=== PATIENT | male | born 1990 | race Two or more races ===

== ENCOUNTER 2017-12-19 20:41 | Emergency (ER) | payer SELFPAY ==
[~2017-12-19] VITALS: Ht 180.3 cm; Wt 113.4 kg
[2017-12-19 21:07] VITALS: BP 121/68
[2017-12-19] MEDS ORDERED: diphenhydrAMINE HCL 25 MG CAPSULE ONE (22:19)
[2017-12-19] MEDS ORDERED: predniSONE 20 MG TABLET ONE (22:20)
[2017-12-19] MEDS ORDERED: diphenhydrAMINE HCL ELIX 25 MG/10 ML UDC PO ONE (22:30)
[2017-12-19] MEDS ORDERED: predniSONE 20 MG TABLET PO ONE (22:30)
== END 2017-12-19 22:23 | disposition home or self-care (01) ==
LOC: ER 20:43
DX: T78.40XA Allergy, unspecified, initial encounter (principal); F10.10 Alcohol abuse, uncomplicated; J45.909 Unspecified asthma, uncomplicated
CPT/HCPCS: 99283; A4606; J7512; Q0163; Z7610

== ENCOUNTER 2019-07-22 14:05 | Emergency (ER) | payer SELFPAY ==
[~2019-07-22] VITALS: Ht 180.3 cm; Wt 104.3 kg
--- NOTE | 2019-07-22 14:16 | NUR ---
"C/O R SIDED WEAKNESS x 1 DAY AROUND 3 PM" PT AAOX4, -SOB, NAD NOTED, VSS, PIV STARTED, BLOOD COLLECTED, PENDING MD DIEGO
[2019-07-22 14:49] LABS: BASOPHILS % (AUTO) 0.3 % (0.0-2.0); EOSINOPHILS % (AUTO) 0.6 % (0.0-6.0); HEMATOCRIT 41 % (39-51); HEMOGLOBIN 13.5 g/dL (13.5-17.5); LYMPHOCYTES # (AUTO) 1.9 /CMM (0.8-4.8); LYMPHOCYTES % (AUTO) 41.8 % (20.0-44.0); MEAN CORPUSCULAR HGB CONC 33 g/dl (31.0-36.0); MEAN CORPUSCULAR VOLUME 78 fL (80-96); MONOCYTES # (AUTO) 0.7 /CMM (0.1-1.30); MONOCYTES % (AUTO) 16.6 % (2.0-12.0); NEUTROPHILS # (AUTO) 1.8 /CMM (1.8-8.9); NEUTROPHILS % (AUTO) 40.7 % (43.0-81.0); PLATELET COUNT (AUTO) 196 /CMM (150-450); WHITE BLOOD COUNT (AUTO) 4.4 K/uL (4.3-11.0)
[2019-07-22 15:00] VITALS: BP 116/88
[2019-07-22 15:02] LABS: ALANINE AMINOTRANSFERASE 16 U/L (12-78); ALBUMIN 3.2 g/dL (3.4-5.0); ALKALINE PHOSPHATASE 64 U/L (46-116); ASPARTATE AMINOTRANSFERASE 24 U/L (15-37); BILIRUBIN,DIRECT 0.1 mg/dL (0.0-0.2); BILIRUBIN,TOTAL 0.2 mg/dL (0.2-1.0); CALCIUM, SERUM 9.3 mg/dL (8.5-10.1); CARBON DIOXIDE 26 mmol/L (21-32); CHLORIDE 101 mmol/L (98-107); CREATININE 1.1 mg/dL (0.6-1.3); GLUCOSE 94 mg/dL (74-106); POTASSIUM 4.2 mmol/L (3.5-5.1); SODIUM SERUM 135 mmol/L (136-145); TOTAL PROTEIN, SERUM 10.6 g/dL (6.4-8.2); UREA NITROGEN, BLOOD 9 mg/dL (7-18)
[2019-07-22 15:27] LABS: BAND % (MANUAL) 1 % (0.0-5.0); EOSINOPHILS % (MANUAL) 1 % (0-4); LYMPHOCYTES % (MANUAL) 46 % (16-48); MONOCYTES % (MANUAL) 9 % (0-11.0); NEUTROPHILS % (MANUAL) 43 (42-76)
--- NOTE | 2019-07-22 15:27 | NUR ---
IV removed. Catheter intact and site benign. Pressure and 4x4 applied to site. No bleeding noted.Patient discharged to home in stable condition. Written and verbal after care instructions given. Patient verbalizes understanding of instruction.
[2019-07-22 16:09] LABS: APPEARANCE,URINE Clear (CLEAR); BILIRUBIN,URINE Negative (NEGATIVE); BLOOD, URINE Negative Ery/uL (NEGATIVE); COLOR,URINE Yellow (YELLOW); KETONES,URINE Negative (NEGATIVE); LEUKOCYTE ESTERASE ,URINE Negative (NEGATIVE); NITRITE, URINE Negative (NEGATIVE); PROTEIN,URINE Negative (NEGATIVE); UGLUCOSE Negative (NEGATIVE)
[2019-07-22 16:23] LABS: BACTERIA,URINE Few /HPF (None Seen); RBC,URINE 0-2 /HPF (0-2); SQUAMOUS EPITHELIAL CELL,UR Few /HPF (None Seen); WBC,URINE 0-2 /HPF (0-3)
== END 2019-07-22 15:29 | disposition home or self-care (01) ==
LOC: ER 14:05
DX: R53.1 Weakness (principal); K64.9 Unspecified hemorrhoids; J45.909 Unspecified asthma, uncomplicated; R40.4 Transient alteration of awareness; Z60.2 Problems related to living alone
CPT/HCPCS: 36415; 70450-TC; 80048-TC; 80076-TC; 81000-TC; 84484-TC; 85025-TC; 85730-TC